=== PATIENT | male | born 1975 | race Hispanic/Latino ===

== ENCOUNTER 2019-12-09 22:34 | Emergency (ER) | payer OTHER ==
[~2019-12-09] VITALS: Ht 172.7 cm; Wt 92.1 kg
[2019-12-09] MEDS ORDERED: OMEPRAZOLE20 MG PO (23:06)
[2019-12-09] MEDS ORDERED: COZAAR50 MG PO (23:07)
== END 2019-12-10 00:06 | disposition home or self-care (01) ==
LOC: ED 22:34
DX: I10 Essential (primary) hypertension (principal); K21.9 Gastro-esophageal reflux disease without esophagitis; Z79.899 Other long term (current) drug therapy
CPT/HCPCS: 99283